=== PATIENT | male | born 1980 | race Caucasian/White ===

== ENCOUNTER 2021-10-08 09:01 | Emergency (ER) | payer SELFPAY ==
[~2021-10-08] VITALS: Ht 175.3 cm; Wt 61.0 kg
[2021-10-08 09:11] VITALS: BP 110/60
[2021-10-08 09:53] LABS: BASOPHILS % 0.4 % (0.0-2.0); EOSINOPHILS % 2.3 % (0.0-5.0); HEMOGLOBIN. 14.7 g/dL (14.0-18.0); LYMPHOCYTES % 21.5 % (20.0-50.0); MEAN CORPUSCULAR HEMOGLOBIN 31.4 pg (28.0-32.0); MEAN CORPUSCULAR VOLUME 91.7 fL (80.0-94.0); MONOCYTES % 5.5 % (2.0-8.0); NEUTROPHILS % 70.3 % (40.0-76.0); PLATELET 278 x1000/uL (130-400); RED BLOOD CELL COUNT 4.69 mill/uL (4.7-6.1); RED CELL DISTRIBUTION WIDTH 13.7 % (11.6-14.6)
[2021-10-08 10:00] LABS: CHLORIDE 106 mEq/L (98-107)
[2021-10-08] MEDS ORDERED: PANTOPRAZOLE SODIUM 40 MG/VIAL IV STA (10:29)
[2021-10-08] MEDS ORDERED: DEXT 5%/0.45% NACL 1000ML 1,000 ML IV SCH (14:15)
[2021-10-08] MEDS ORDERED: PANTOPRAZOLE SODIUM 40 MG/VIAL IV SCH (14:15)
[2021-10-08] MEDS ORDERED: ONDANSETRON HCL 4MG/2ML INJ IV PRN (14:15)
[2021-10-08] MEDS ORDERED: ACETAMINOPHEN 325MG TABLET PO PRN (14:15)
[2021-10-08 15:21] LABS: TOTAL IRON BINDING CAPACITY 392 ug/dL (250-450)
[2021-10-10 19:11] LABS: FOLIC ACID (FOLATE) SERUM 10.2 ng/mL (>5.38)
== END 2021-10-08 18:55 | disposition left against medical advice (07) ==
LOC: ER 09:09 → EDBEDREQ 10:36 → ER 18:55 → CANBEDREQ 10-09 13:31
DX: K92.2 Gastrointestinal hemorrhage, unspecified (principal)
CPT/HCPCS: 36415; 80053; 82607; 82746; 83540; 83550; 83880; 84484; 85025; 85044; 86850; 86900; 93005; 99284